=== PATIENT | male | born 1965 | race Caucasian/White ===

== ENCOUNTER 2024-01-19 09:01 | Emergency (ER) | payer MEDICAID ==
[~2024-01-19] VITALS: Ht 180.3 cm; Wt 110.2 kg
[2024-01-19 09:09] VITALS: BP 134/77; PULSE 82; RESP 19; TEMP 98.4; O2SAT 95
[2024-01-19] MEDS ORDERED: NOVR SUBQ (09:26)
[2024-01-19] MEDS: INSULIN REGULAR, HUMAN 100 UNIT/ML VIAL SUBQ ONE (09:36)
[2024-01-19 09:38] VITALS: BP 136/82; PULSE 78; RESP 17; TEMP 98.4; O2SAT 98
== END 2024-01-19 09:38 | disposition home or self-care (01) ==
LOC: MED 09:01
DX: E11.9 Type 2 diabetes mellitus without complications (principal); R03.0 Elevated blood-pressure reading, without diagnosis of hypertension; Z76.0 Encounter for issue of repeat prescription; Z79.4 Long term (current) use of insulin
CPT/HCPCS: 82948; 96372; 99283; J1815

== ENCOUNTER 2024-03-23 19:58 | Emergency (ER) | payer MEDICAID ==
[~2024-03-23] VITALS: Ht 180.3 cm; Wt 112.9 kg
[~2024-03-23 19:58] MED LIST: NOVR SUBQ
[2024-03-23 20:06] VITALS: BP 135/75; PULSE 99; RESP 20; TEMP 98.1; O2SAT 98
[2024-03-23 21:08] LABS: BASOPHILS % (AUTO) 0.1 % (0.0-2.0); EOSINOPHILS % (AUTO) 0.1 % (0.0-4.0); HEMATOCRIT 43.5 % (36-52); HEMOGLOBIN 15.2 g/dL (12.0-18.0); LYMPHOCYTES # (AUTO) 1.1 K/uL (2.0-11.5); MEAN CORPUSCULAR HEMOGLOBIN 33 pg (27-31); MEAN CORPUSCULAR HGB CONC 35 g/dL (33-37); MONOCYTES # (AUTO) 0.6 K/uL (0.8-1.0); MONOCYTES % (AUTO) 10.9 % (1.7-9.3); NEUTROPHILS # (AUTO) 3.6 K/uL (1.8-7.7); NEUTROPHILS % (AUTO) 67.9 % (42.2-75.2); PLATELET COUNT (AUTO) 147 K/uL (140-450); RED BLOOD CELL COUNT(AUTO) 4.63 MIL/uL (4.20-6.10); WHITE BLOOD COUNT (AUTO) 5.3 K/uL (4.8-10.8)
[2024-03-23 21:22] LABS: ALBUMIN 3.6 g/dL (3.4-5.0); ANION GAP 7.8 (8-16); CALCIUM 8.9 mg/dL (8.5-10.1); CARBON DIOXIDE 30.3 mmol/L (21-32); CREATININE 0.8 mg/dL (0.6-1.3); POTASSIUM 4.1 mmol/L (3.5-5.1); TOTAL BILIRUBIN 0.8 mg/dL (0.0-1.0); TOTAL PROTEIN, SERUM 6.5 g/dL (6.4-8.2)
[2024-03-23] MEDS: HYDROcodone/APAP 5/325 MG 1 TAB TAB PO ONE (22:13)
[2024-03-23] MEDS: ALBUTEROL 0.083% 2.5 MG/3 ML NEBU INH ONE (22:24)
[2024-03-23 22:25] VITALS: PULSE 68; RESP 16; O2SAT 96
[2024-03-23] MEDS ORDERED: FUROSEMIDE 20 MG TAB PO ONE (22:35)
[2024-03-24] MEDS ORDERED: FAMO-90 PO (00:04)
[2024-03-24] MEDS ORDERED: ACET-10509 PO (00:04)
[2024-03-24] MEDS ORDERED: FURO-572 PO (00:04)
[2024-03-24] MEDS ORDERED: ASPI-1856 PO (00:04)
[2024-03-24 00:11] VITALS: BP 135/75; PULSE 68; RESP 16; TEMP 98.1; O2SAT 96
== END 2024-03-24 00:11 | disposition home or self-care (01) ==
LOC: MED 19:58
DX: R07.9 Chest pain, unspecified (principal); R60.9 Edema, unspecified; E11.9 Type 2 diabetes mellitus without complications; Z79.4 Long term (current) use of insulin; Z79.899 Other long term (current) drug therapy
CPT/HCPCS: 36415; 71045; 80053; 83880; 84484; 85025; 93005; 94640; 99285; J7030; J7613

== ENCOUNTER 2024-05-21 11:05 | Inpatient (IN) | payer MEDICAID ==
[~2024-05-21] VITALS: Ht 177.8 cm; Wt 111.6 kg
[~2024-05-21 11:05] MED LIST changes: +ACET-10509 PO; +ASPI-1856 PO; +FAMO-90 PO; +FURO-572 PO
[2024-05-21 11:07] VITALS: BP 152/83; PULSE 77; RESP 18; TEMP 97; O2SAT 97
[2024-05-21] MEDS: ASPIRIN 81 MG TAB.CHEW PO ONE (11:50)
[2024-05-21] MEDS: KETOROLAC 30 MG/ML VIAL IVP ONE (11:53)
[2024-05-21 11:57] LABS: BASOPHILS % (AUTO) 0.2 % (0.0-2.0); EOSINOPHILS % (AUTO) 0.1 % (0.0-4.0); HEMATOCRIT 42.8 % (36-52); HEMOGLOBIN 14.8 g/dL (12.0-18.0); LYMPHOCYTES # (AUTO) 1.2 K/uL (2.0-11.5); LYMPHOCYTES % (AUTO) 27.8 % (20.5-51.1); MEAN CORPUSCULAR HEMOGLOBIN 32 pg (27-31); MEAN CORPUSCULAR HGB CONC 35 g/dL (33-37); MEAN CORPUSCULAR VOLUME 92.4 fL (80-94); MONOCYTES # (AUTO) 0.5 K/uL (0.8-1.0); MONOCYTES % (AUTO) 10.5 % (1.7-9.3); NEUTROPHILS # (AUTO) 2.7 K/uL (1.8-7.7); NEUTROPHILS % (AUTO) 61.4 % (42.2-75.2); PLATELET COUNT (AUTO) 154 K/uL (140-450); RED BLOOD CELL COUNT(AUTO) 4.64 MIL/uL (4.20-6.10); RED CELL DISTRIBUTION WIDTH 12.9 % (11.6-13.7); WHITE BLOOD COUNT (AUTO) 4.3 K/uL (4.8-10.8)
[2024-05-21 12:12] LABS: ANION GAP 10.7 (8-16); CALCIUM 9.2 mg/dL (8.5-10.1); CARBON DIOXIDE 30.5 mmol/L (21-32); CREATININE 0.9 mg/dL (0.6-1.3); POTASSIUM 4.2 mmol/L (3.5-5.1)
[2024-05-21] MEDS ORDERED: NITROGLYCERIN 0.4 MG TAB SL PRN (12:40)
[2024-05-21] MEDS ORDERED: ONDANSETRON 4 MG/2 ML VIAL IVP PRN (12:40)
[2024-05-21] MEDS ORDERED: LORazepam 1 MG TAB PO PRN (12:40)
[2024-05-21] MEDS ORDERED: MORPHINE SULFATE 4 MG/ML SYR IVP PRN (12:40)
[2024-05-21] MEDS ORDERED: ZOLPIDEM 5 MG TAB PO PRN (12:40)
[2024-05-21] MEDS ORDERED: DEXTROSE 50% 50 ML SYR IVP PRN (12:40)
[2024-05-21] MEDS ORDERED: ALUMINUM HYD/MAG/SIMETHICONE 30 ML UDC PO PRN (12:40)
[2024-05-21] MEDS ORDERED: HYDROcodone/APAP 5/325 MG 1 TAB TAB PO PRN (12:40)
[2024-05-21] MEDS: NACL 0.9% 1,000 ML IV SCH (13:00)
[2024-05-21] MEDS ORDERED: FAMOTIDINE 20 MG TAB PO PRN (15:45)
[2024-05-21] MEDS ORDERED: hydrALAZINE 20 MG/ML VIAL IVP PRN (15:45)
[2024-05-21] MEDS ORDERED: FUROSEMIDE 20 MG TAB PO PRN ×2 (15:45→16:04)
[2024-05-21] MEDS: INSULIN LISPRO SLIDING SCALE 100 UNITS/ML VIAL SUBQ PRN (16:40)
[2024-05-21] MEDS: BLOOD GLUCOSE MONITORING 1 DEV DEV FS SCH (16:46)
[2024-05-21] MEDS: MORPHINE SULFATE 2 MG/ML SYR IVP PRN (20:39)
[2024-05-21 21:14] VITALS: PULSE 70
[2024-05-21] MEDS: SIMVASTATIN 20 MG TAB PO SCH (22:20)
[2024-05-21] MEDS: METOPROLOL 25 MG TAB PO SCH (22:21)
[2024-05-21 22:30] VITALS: PULSE 89; RESP 18; O2SAT 97
[2024-05-22] VITALS: BP 132/78; PULSE 62; PULSE 89; RESP 18; TEMP 96.6; O2SAT 97
[2024-05-22 04:00] VITALS: BP 134/78; PULSE 55; PULSE 56; RESP 18; TEMP 97.1; O2SAT 96
[2024-05-22 05:58] LABS: BASOPHILS % (AUTO) 0.1 % (0.0-2.0); EOSINOPHILS % (AUTO) 0.1 % (0.0-4.0); HEMOGLOBIN 13.8 g/dL (12.0-18.0); LYMPHOCYTES # (AUTO) 1.5 K/uL (2.0-11.5); LYMPHOCYTES % (AUTO) 33.3 % (20.5-51.1); MEAN CORPUSCULAR HEMOGLOBIN 32 pg (27-31); MEAN CORPUSCULAR HGB CONC 35 g/dL (33-37); MEAN CORPUSCULAR VOLUME 91.9 fL (80-94); MONOCYTES # (AUTO) 0.5 K/uL (0.8-1.0); MONOCYTES % (AUTO) 10.3 % (1.7-9.3); NEUTROPHILS # (AUTO) 2.5 K/uL (1.8-7.7); NEUTROPHILS % (AUTO) 56.2 % (42.2-75.2); PLATELET COUNT (AUTO) 151 K/uL (140-450); RED BLOOD CELL COUNT(AUTO) 4.35 MIL/uL (4.20-6.10); WHITE BLOOD COUNT (AUTO) 4.5 K/uL (4.8-10.8)
[2024-05-22 06:13] LABS: ALBUMIN 3.3 g/dL (3.4-5.0); ANION GAP 7.9 (8-16); CALCIUM 8.6 mg/dL (8.5-10.1); CARBON DIOXIDE 30.1 mmol/L (21-32); CREATININE 0.7 mg/dL (0.6-1.3); MAGNESIUM 1.8 mg/dL (1.8-2.4); TOTAL BILIRUBIN 0.7 mg/dL (0.0-1.0)
[2024-05-22 08:00] VITALS: BP 134/81; PULSE 55; PULSE 56; RESP 18; TEMP 96.9; O2SAT 98
[2024-05-22] MEDS: LOSARTAN 25 MG TAB PO SCH (09:00)
[2024-05-22] MEDS: DOCUSATE SODIUM 100 MG GELCAP PO SCH (09:00)
[2024-05-22] MEDS: ASPIRIN 81 MG TAB.CHEW PO SCH (09:22)
[2024-05-22] MEDS ORDERED: NITR0.4T1 SL (11:07)
[2024-05-22 12:00] VITALS: BP 127/74; PULSE 60; PULSE 62; RESP 18; TEMP 97.1; O2SAT 99
[2024-05-22] MEDS: ACETAMINOPHEN 325 MG TAB PO PRN (12:27)
== END 2024-05-22 15:35 | disposition home or self-care (01) | DRG 203 ==
LOC: MED 11:05 → MTU 12:40 → MMU 20:17
PROVIDERS: ADMIT Student in an Organized Health Care Education/Training Program; ATTEND Student in an Organized Health Care Education/Training Program
DX: M94.0 Chondrocostal junction syndrome [Tietze] (principal); E44.1 Mild protein-calorie malnutrition; I10 Essential (primary) hypertension; J45.909 Unspecified asthma, uncomplicated; E11.9 Type 2 diabetes mellitus without complications; Z68.35 Body mass index [BMI] 35.0-35.9, adult
CPT/HCPCS: 36415; 71045; 80048; 80053; 82948; 83735; 83880; 84484; 85025; 87081; 93005; 96374; 99285; J1644; J1815; J1885; J2270

== ENCOUNTER 2024-06-03 16:56 | Emergency (ER) | payer MEDICAID ==
[~2024-06-03] VITALS: Ht 180.3 cm; Wt 113.5 kg
[~2024-06-03 16:56] MED LIST changes: +NITR0.4T1 SL
[2024-06-03 17:37] VITALS: BP 135/76; PULSE 72; RESP 18; TEMP 97.7; O2SAT 96
[2024-06-03 18:44] VITALS: PULSE 73; RESP 14; O2SAT 97
[2024-06-03] MEDS: ALBUTEROL SULFATE/IPRATROPIU 3 ML SOL IH ONE (18:48)
[2024-06-03] MEDS ORDERED: BISM262C52 PO (19:04)
[2024-06-03] MEDS ORDERED: ALBU0.0912 IH (19:04)
[2024-06-03] MEDS ORDERED: FURO-570 PO (19:04)
[2024-06-03 20:02] VITALS: BP 137/78; PULSE 83; RESP 20; TEMP 98.5; O2SAT 97
== END 2024-06-03 19:18 | disposition home or self-care (01) ==
LOC: MED 16:56
DX: J45.909 Unspecified asthma, uncomplicated (principal); R60.0 Localized edema; E11.9 Type 2 diabetes mellitus without complications; I10 Essential (primary) hypertension; Z79.899 Other long term (current) drug therapy; Z79.82 Long term (current) use of aspirin; Z79.4 Long term (current) use of insulin
CPT/HCPCS: 93005; 94640; 99283